=== PATIENT | female | born 1950 | race Caucasian/White ===

== ENCOUNTER 2017-06-23 03:01 | Emergency (ER) | payer OTHER ==
[~2017-06-23] VITALS: Ht 170.2 cm; Wt 109.1 kg
[~2017-06-23 03:01] MED LIST: ALLOPURINOL100 MG PO; ALLOPURINOL300 MG PO; ARIMIDEX1 MG PO; AVAPRO300 MG PO; BENICAR40 MG PO; BESIVANCE5 ML RIGHT EYE; COLACE100 MG PO; COUMADIN3 MG PO; COUMADIN4 MG PO; COUMADIN5 MG PO; DAILY VITAMIN1 EAC8 PO; DILAUDID2 MG PO; DIOVAN320 MG PO; FASLODEX250 MG/5 M IM; FLUOXETINE HCL20 MG PO; FUROSEMIDE20 MG PO; FUROSEMIDE80 MG PO; IBRANCE125 MG PO; IBRANCE75 MG PO; KEFLEX500 MG PO; KETOROLAC TROME10 ML RIGHT EYE; KLOR-CON M2020 MEQ PO; KLOR-CON20 MEQ PO; LEVO-T88 MCG PO; LEVOTHYROXINE100 MCG PO; LEVOXYL100 MCG PO; LIDOCAINE20 MG/1 M5 PO; LORATADINE10 M2 PO; LOVENOX100 MG/1 M SC; METFORMIN HCL500 MG PO; METOPROLOL SUCC50 MG PO; NABUMETONE750 MG PO; NOVOLOG PE100 UNITS/ SC; OMEPRAZOLE20 M2 PO; OXAYDO5 MG PO; OXYCONTIN10 MG PO; PANTOPRAZOLE SO40 MG PO; PERCOCET 5/31 TABLET PO; PREDNISOLONE AC15 ML RIGHT EYE; PREDNISONE10 MG PO; PREDNISONE5 MG PO; PROZAC20 MG PO; TRAMADOL HCL50 MG PO; TYLENOL EXTRA500 MG PO; TYLENOL WITH C1 EACH PO; VALSARTAN320 MG PO; WARFARIN SODIUM2 MG PO; WARFARIN SODIUM4 MG PO; ZOFRAN4 MG PO
[2017-06-23] MEDS ORDERED: NAPROSYN500 MG PO (04:01)
[2017-06-23] MEDS ORDERED: CLONAZEPAM0.5 MG PO (04:42)
[2017-06-23 05:21] VITALS: BP 174/86
== END 2017-06-23 05:35 | disposition home or self-care (01) ==
LOC: EME → EDBD 03:01 → EME 05:35
PROC: 2W3DX1Z Immobilization of Left Lower Arm using Splint (ICD-10-PCS; principal; 2017-06-23)
DX: S69.92XA Unspecified injury of left wrist, hand and finger(s), initial encounter (principal); W18.09XA Striking against other object with subsequent fall, initial encounter; M10.9 Gout, unspecified; I11.0 Hypertensive heart disease with heart failure; I50.9 Heart failure, unspecified; I48.91 Unspecified atrial fibrillation; Z79.01 Long term (current) use of anticoagulants; E11.9 Type 2 diabetes mellitus without complications; Z79.84 Long term (current) use of oral hypoglycemic drugs; E78.5 Hyperlipidemia, unspecified; F41.9 Anxiety disorder, unspecified; Z95.2 Presence of prosthetic heart valve; Z85.850 Personal history of malignant neoplasm of thyroid; Z85.3 Personal history of malignant neoplasm of breast; Z85.118 Personal history of other malignant neoplasm of bronchus and lung; Z85.830 Personal history of malignant neoplasm of bone; Z85.841 Personal history of malignant neoplasm of brain; Z90.13 Acquired absence of bilateral breasts and nipples
CPT/HCPCS: 73110; 99281; 99284